=== PATIENT | male | born 1995 ===

== ENCOUNTER 2017-09-26 11:47 | Emergency (ER) | payer OTHER ==
[2017-09-26 11:59] VITALS: BP 142/66; PULSE 114; RESP 20; TEMP 103.2; O2SAT 98
--- NOTE | 2017-09-26 12:39 | ED PDOC ---
HPI: Fever Fever Onset Was: 09/26/17 What Antipyretic Given Prior To Arrival: Acetaminophen (4:30am) Recent Sick Contacts: No Does Patient Have Hx Of Febrile Seizures: No Did The Patient Have A Seizure Today: No Symptoms Associated With Fever: Cough (mild), Other (body aches, and congestion) Past Medical History Reviewed: Historical Data, Nursing Documentation, Vital Signs Vital Signs: Last Vital Signs Temp 103.2 F H 09/26/17 11:57 Pulse 114 H 09/26/17 11:57 Resp 20 09/26/17 11:57 BP 142/66 09/26/17 11:57 Pulse Ox 98 09/26/17 12:47 - Medical History PMH: Asthma - Surgical History Surgical History: No Surg Hx - Family History Family History: States: Unknown Family Hx - Home Medications Home Medications: Ambulatory Orders Medication Instructions Recorded Ondansetron [Zofran Odt] 4 mg PO QID PRN #15 odt 08/31/14 Albuterol HFA [Ventolin HFA 90 1 puff IH Q4 PRN #1 inh 05/10/16 mcg/actuation (8 g)] Azithromycin [Zithromax] 250 mg PO DAILY #4 tab 05/10/16 Acetaminophen [Acetaminophen Extra 2 tab PO Q6 PRN #24 tablet 09/26/17 Strength] Ibuprofen [Motrin] 600 mg PO Q8 PRN #21 tab 09/26/17 Oseltamivir Phosphate [Tamiflu] 75 mg PO BID #9 capsule 09/26/17 Pseudoephedrine [Sudafed Tab] 60 mg PO Q6 PRN #15 tab 09/26/17 - Allergies Allergies/Adverse Reactions: Allergies Allergy/AdvReac Type Severity Reaction Status Date / Time No Known Allergies Allergy Verified 08/30/14 20:17 Review of Systems ROS Statement: Except As Marked, All Systems Reviewed And Found Negative Constitutional: Positive for: Fever, Chills, Other (body aches) ENT: Positive for: Nose Congestion Respiratory: Positive for: Cough (mild) Physical Exam - Reviewed Nursing Documentation Reviewed: Yes Vital Signs Reviewed: Yes - Physical Exam Appears: Positive for: Well, Non-toxic, No Acute Distress Head Exam: Positive for: ATRAUMATIC (No facial pain), NORMAL INSPECTION, NORMOCEPHALIC Skin: Positive for: Normal Color, Warm, Dry Eye Exam: Positive for: Normal appearance ENT: Positive for: Normal ENT Inspection. Negative for: Tonsillar Exudate Neck: Positive for: Painless ROM, Supple Cardiovascular/Chest: Positive for: Regular Rate, Rhythm. Negative for: Murmur Respiratory: Positive for: Normal Breath Sounds. Negative for: Respiratory Distress Extremity: Positive for: Normal ROM. Negative for: Deformity, Swelling Neurologic/Psych: Positive for: Alert, Oriented - ECG O2 Sat by Pulse Oximetry: 98 (RA) Pulse Ox Interpretation: Normal - Progress ED Course And Treament: rapid strep neg tamiflu 75 mg x 1 dose given tylenol 975mg x 1 dose Medical Decision Making Medical Decision Making: Initial Impression: URI, Flu Initial Plan: --Tylenol 325mg tab 975 mg PO --Tamiflu Cap 75 mg PO --Rapid strep group A antigen --reevaluation ~ Scribe Attestation: Documented by Perry Medellin, acting as a scribe for Jose Claudio PA-C. Provider Scribe Attestation: All medical record entries made by the Scribe were at my direction and personally dictated by me. I have reviewed the chart and agree that the record accurately reflects my personal performance of the history, physical exam, medical decision making, and the department course for this patient. I have also personally directed, reviewed, and agree with the discharge instructions and disposition. Disposition - Clinical Impression Clinical Impression: Influenza - Patient ED Disposition Is Patient to be Admitted: No - Disposition Disposition: Routine/Home Disposition Time: 13:50 Condition: FAIR Prescriptions: Acetaminophen [Acetaminophen Extra Strength] 2 tab PO Q6 PRN #24 tablet PRN Reason: Fever >100.4 F Ibuprofen [Motrin] 600 mg PO Q8 PRN #21 tab PRN Reason: Fever >100.4 F Oseltamivir Phosphate [Tamiflu] 75 mg PO BID #9 capsule Pseudoephedrine [Sudafed Tab] 60 mg PO Q6 PRN #15 tab PRN Reason: Nasal Congestion Instructions: Influenza (ED) Forms: [facility] ([employer]), [facility] ED School/Work Excuse History Of Present Illness Bandar Kirkpatrick is a 21 year old male, with a past medical history of asthma, who presents to the emergency department complaining of fever, chills, tonsil pain and body aches onset since this morning. Patient also reports a mild cough and congestion for the past x3 days. Patient denies any sick contacts. He took Tylenol at 4:30 am with minimal relief. He denies any facial pain or other medical complaints. PMD: None provided.
== END 2017-09-26 13:50 | disposition home or self-care (01) ==
LOC: H.ER 11:47
DX: J11.1 Influenza due to unidentified influenza virus with other respiratory manifestations (principal); J45.909 Unspecified asthma, uncomplicated